=== PATIENT | female | born 1995 ===

== ENCOUNTER 2018-08-28 05:37 | Day surgery (SDC) | payer OTHER ==
[2018-08-28] VITALS (11 sets, daily range): BP systolic 105–127; BP diastolic 49–72
[~2018-08-28] VITALS: Ht 170.2 cm; Wt 83.0 kg
[~2018-08-28 05:37] MED LIST: NKM
[2018-08-28] MEDS ORDERED: ceFAZolin 2gm/50ml Premix 50 ML IVPB ONE (06:45)
[2018-08-28] MEDS ORDERED: fentaNYL 100 mcg/2 mL IV ONE (07:03)
[2018-08-28] MEDS ORDERED: Lidocaine 1% MPF 10mg/ml 5ml ONE (07:03)
[2018-08-28] MEDS ORDERED: Propofol 200mg/20ml IV ONE (07:03)
[2018-08-28] MEDS ORDERED: Midazolam 2mg/2ml Inj ONE (07:03)
[2018-08-28] MEDS ORDERED: Bacitracin Oint 15gm Tube TOPIC ONE (07:16)
[2018-08-28] MEDS ORDERED: Bupivacaine 0.25% Inj 30ml INJ ONE (07:16)
[2018-08-28] MEDS ORDERED: Dyna-Hex 2% Top Sol 2oz TOPIC ONE (07:16)
[2018-08-28] MEDS ORDERED: Muri-Lube ONE (07:16)
[2018-08-28] MEDS ORDERED: Lidocaine 1% 10mg/ml/Epi 0.005mg/ml 30ml vial INJ ONE (07:16)
--- NOTE | 2018-08-28 07:19 | Anethesia Preoperative Eval ---
Anesthesia Pre-op PMH/ROS General Date of Evaluation: Aug 28, 2018 Time of Evaluation: 07:18 Anesthesiologist: Neva Leiva CRNA ASA Score: ASA 1 Mallampati Score Class I : Soft palate, uvula, fauces, pillars visible Class II: Soft palate, uvula, fauces visible Class III: Soft palate, base of uvula visible Class IV: Only hard plate visible Mallampati Classification: Class II Surgeon: Melissa Diagnosis: Gender identity disorder Surgical Procedure: (B) mastectomy with free nipple graft Anesthesia History: none Family History: no anesthesia problems Allergies: Coded Allergies: No Known Allergies (Unverified , 08/27/18) Medications: see eMAR Patient NPO?: Yes NPO Date: Aug 28, 2018 NPO Time: 00:00 Past Medical History Cardiovascular: Denies: HTN, CAD, DC, valve dz, arrhythmia, other Pulmonary: Reports: other - Bronchitis December 2017; no further sequele; Denies: asthma, COPD, LUCIA Gastrointestinal/Genitourinary: Denies: GERD, CRI, ESRD, other Neurologic/Psychiatric: Reports: other - Gender identity disorder Endocrine: Denies: DM, hypothyroidism, steroids, other HEENT: Denies: cataract (L), cataract (R), glaucoma, [place] (L), [place] (R), other Hematology/Immune: Denies: anemia, DVT, bleeding disorder, other Musculoskeletal/Integumentary: Denies: OA, RA, DJD, DDD, edema, other PMH Narrative: as noted above PSxH Narrative: none Anesthesia Pre-op Phys. Exam Physician Exam Last Vital Signs Date Time Temp Pulse Resp B/P (MAP) Pulse Ox O2 Delivery O2 Flow Rate FiO2 08/28/18 06:12 97.0 68 20 126/72 100 Room Air Constitutional: NAD Neurologic: CN 2-12 intact Cardiovascular: RRR Respiratory: CTA Airway Exam Mallampati Score: Class II MO: full Neck: FROM TMD: > 3 FB ROM: full Teeth: intact Dentures: no upper, no lower Anesthesia Pre-op A/P Labs Urine Test Test 08/28/18 05:50 Urine HCG, Qualitative Negative (NEGATIVE) Risk Assessment & Plan Assessment: ASA 1 ok to proceed Plan: GETA Status Change Before Surgery: No Pre-Antibiotics Drug: Neva Brasher CRNA Aug 28, 2018 07:19
--- NOTE | 2018-08-28 07:23 | Pre-Procedure Note/Attestation ---
Pre-Procedure Note/Attestation Complete Prior to Procedure Planned Procedure: bilateral Indications for Procedure Pre-Operative Diagnosis: gender identity disorder Attestation I attest that I discussed the nature of the procedure; its benefits; risks and complications; and alternatives (and the risks and benefits of such alternatives ), prior to the procedure, with the patient (or the patient's legal roofing sales representative). I attest that, if there was a reasonable possibility of needing a blood transfusion, the patient (or the patient's legal roofing sales representative) was given the [facility] standardized written summary, pursuant to the Krishan White Shield Blood Safety Act ([place] Health and Safety Code # 1645, as amended). I attest that I re-evaluated the patient just prior to the surgery and that there has been no change in the patient's H&P, except as documented below: Kevan Torres MD Aug 28, 2018 07:23
[2018-08-28] MEDS ORDERED: Zemuron 50mg/5ml Inj IV ONE (07:27)
[2018-08-28] MEDS ORDERED: Succinylcholine 20mg/ml 10ml vial ONE (07:27)
[2018-08-28] MEDS ORDERED: Sterile Water Irrig 1000ml IRRIG ONE (07:30)
[2018-08-28] MEDS ORDERED: LR 1000ml ONE (07:30)
[2018-08-28] MEDS ORDERED: NS Irrig 1000ml ONE (07:30)
[2018-08-28] MEDS ORDERED: Ketorolac 30mg Inj ONE (08:10)
[2018-08-28] MEDS ORDERED: Dexamethasone 4mg/ml vial ONE (08:10)
[2018-08-28] MEDS ORDERED: Metoclopramide 10mg/2ml Inj IVP PRN (08:30)
[2018-08-28] MEDS ORDERED: Hydromorphone 0.5mg/0.5ml inj IVP PRN (08:30)
[2018-08-28] MEDS ORDERED: Acetaminophen 500mg (ES) tab ORAL PRN (08:30)
[2018-08-28] MEDS ORDERED: DiphenhydrAMINE 50mg/ml Inj IVP PRN (08:30)
[2018-08-28] MEDS ORDERED: Glycopyrrolate 0.2mg/ml 1ml Vial ONE (10:33)
[2018-08-28] MEDS ORDERED: Neostigmine 1mg/ml 10ml Inj ONE (10:33)
--- NOTE | 2018-08-28 11:28 | Discharge Instructions ---
Discharge Instructions Discharge Instructions Follow up with: Dr. Torres 09/03/18 Diet: regular Resume Normal Activity?: Yes Activity: ambulate For Surgical Patients Dressing Care: keep dry and clean May shower: No - sponge bathe only For Congestive Heart Failure Reminder Report to your physician any weight gain of 5 pounds or more in one week. Kevan Torres MD Aug 28, 2018 11:28
--- NOTE | 2018-08-28 11:28 | Operative Note - PDOC ---
Operative Note Operative Note Date of Operation/Procedure: Aug 28, 2018 Pre-op Diagnosis: gender identity disorder Procedure: bilateral mastectomy, bilateral nipple areola reconstruction Post-op Diagnosis: same as pre-op Surgeon: Melissa Anesthesia: general Specimen: yes - 1) right breast, 2) left breast Complications: none Condition: stable Estimated Blood Loss: volume - 50 cc Drains: KRISTOPHER - x2 Implant(s) used?: No Kevan Torres MD Aug 28, 2018 11:28
[2018-08-28] MEDS ORDERED: D5 1/2NS 1,000 ML IV SCH (11:30)
[2018-08-28] MEDS ORDERED: HYDROmorphone 1mg/ml Carpuject SUBQ PRN (11:30)
[2018-08-28] MEDS ORDERED: Tylenol #3 tab (300mg/30mg) ORAL PRN (11:30)
[2018-08-28] MEDS ORDERED: Norco 5mg/325mg tab ORAL PRN (11:30)
--- NOTE | 2018-08-28 11:38 | Immediate Post-Op Evaluation ---
Immediate Post-Op Evalulation Immediate Post-Op Evalulation Procedure: (B) mastectomy with free nipple graft Date of Evaluation: Aug 28, 2018 Time of Evaluation: 11:27 IV Fluids: LR 2200 ml Estimated Blood Loss: 50 ml Urinary Output: 400 ml Blood Pressure Systolic: 122 Blood Pressure Diastolic: 70 Pulse Rate: 67 Respiratory Rate: 22 O2 Sat by Pulse Oximetry: 100 Temperature (Fahrenheit): 97.5 Pain Score (1-10): 0 Nausea: No Vomiting: No Complications none Patient Status: awake, reacts, patent, extubated Hydration Status: adequate Drug: Cefazolin 2 gm IV Given Within 1 Hr of Incision: Yes Time Given: 07:48 Neva Leiva CRNA Aug 28, 2018 11:38
--- NOTE | 2018-08-28 13:27 | 48 Hour Post Anesthesia Eval ---
Post Anesthesia Evaluation Procedure: (B) mastectomy with free nipple graft Date of Evaluation: Aug 28, 2018 Time of Evaluation: 13:25 Blood Pressure Systolic: 116 - 0: 59 Pulse Rate: 66 Respiratory Rate: 23 Temperature (Fahrenheit): 97.4 O2 Sat by Pulse Oximetry: 98 Airway: patent Nausea: No Vomiting: No Pain Intensity: 2 Hydration Status: adequate Cardiopulmonary Status: Stable, returned to baseline Follow-up Care/Observations: per plastic surgery Post-Anesthesia Complications: none Follow-up care needed: ready to discharge Neva Leiva CRNA Aug 28, 2018 13:27
--- NOTE | 2018-08-28 15:15 | Operative Note - Dictated ---
DATE OF OPERATION: 08/28/2018 PREOPERATIVE DIAGNOSIS: Gender identity disorder. POSTOPERATIVE DIAGNOSIS: Gender identity disorder. PROCEDURE: 1. Bilateral mastectomy. 2. Bilateral nipple-areolar reconstruction utilizing full-thickness nipple-areolar grafts (each graft 2.5 x 2.5 centimeters). SURGEON: Kevan Torres M.D. ANESTHESIA: General. ESTIMATED BLOOD LOSS: 50 mL. SPECIMENS: 1. Right breast. 2. Left breast. DRAINS: A 15-Eritrean Nolberto x2. COMPLICATIONS: None. CONDITION: To recovery room stable. INDICATION FOR PROCEDURE: This is a very pleasant 23-year-old trans male who desires top surgery mastectomy as part of his transition. He has the appropriate letter of recommendation from his therapist and meets all WPATH criteria for top surgery. I have discussed the risks, benefits, and alternatives to the procedure with him including, but not limited to, bleeding, infection, scarring, nerve injury, asymmetry, contour deformity, hematoma, seroma, loss of nipple sensation, loss of nipple graft, and need for additional surgery including revisions. I discussed the orientation of the incisions and the unpredictable nature of scarring. No guarantees were made regarding the outcome. All of his questions have been answered to the best of my ability. He verbalized understanding with everything that we discussed and wishes to proceed. DESCRIPTION OF PROCEDURE: The patient was identified in the preoperative holding area and marked in the standing position. He was then brought to the operating room. He was placed in the supine position on the operating room table with his arms extended on arm boards. All bony prominences were adequately padded. Sequential compression devices were placed and intravenous antibiotics were administered. After induction of anesthesia, the patient's chest was prepped and draped in sterile fashion. Starting on the left breast first, the nipple-areola complex was placed on manual stretch and a levelock measuring 2.5 centimeters in diameter was drawn centered around the nipple. The subdermal plane within this marking was then infiltrated with 3 mL of 1% lidocaine with epinephrine. I then proceeded to incise the marking with a 15 blade scalpel and harvested a full-thickness nipple-areolar graft. The graft was subsequently defatted, wrapped in wet gauze and placed on the back table. I then made the inframammary fold incision using a 10 blade scalpel and dissected down to the level of the pectoralis major fascia. Next, I made the superior breast incision with a 10 blade scalpel and dissected down to the level of Ines's fascia. Allis clamps were used to retract the superior skin and a plane of dissection was created between the subcutaneous tissue and breast parenchyma heading in a superior direction towards the level of the clavicle. Afterwards, the breast parenchyma was elevated off of the pectoralis major fascia proceeding from a medial to a lateral direction. The specimen was then passed off the table. Hemostasis was achieved and the wound was irrigated with saline. A 15-Eritrean Nolberto drain was placed within the wound and brought out through a separate stab incision and secured using 2-0 silk suture. Skin amparo were then used to temporarily reapproximate the skin. I shifted my attention to the contralateral side where the identical procedure was performed. The patient was then sat up on the operating room table and it appeared that he had very reasonable symmetry between the 2 sides of his chest. A marking pen was then used to draw out the proposed location of the new nipple-areola complex and these markings were confirmed with direct measurements. He was then placed back in the supine position. On each side of the chest, the skin amparo were removed. The Ines's fascia layer was closed with interrupted 0 Vicryl suture followed by interrupted 3-0 PDS suture for the subdermal layer and a running 3-0 subcuticular Monocryl suture for the skin. Next, I proceeded with the reconstruction of the nipple-areola complex by incising each of the circular markings on each side of the chest using a 15 blade scalpel and deepithelializing the intervening skin. Each of the nipple-areola grafts was placed onto the appropriate side of the chest and inset using a running 5-0 fast absorbing suture. Next, several 2 0 silk suture ties were placed around the periphery of each nipple-areola graft. A skin graft bolster was fashioned and secured into place using 2-0 silk suture ties. Next, 10 mL of 0.25% plain Marcaine were injected into each of the chest incisions for a total of 20 mL. Sterile dressings were then applied. The patient tolerated the procedure well and was sent to the recovery room in stable condition. All instrument, sharp, and sponge counts were correct at the conclusion of the case. Kevan Torres M.D. DR: TOMMY JOB#: [id number] CC: [email or web address]
== END 2018-08-28 13:40 | disposition home or self-care (01) ==
LOC: SUR 05:37
DX: F64.9 Gender identity disorder, unspecified (principal)
CPT/HCPCS: 81025; 94003; 94150; J2250; J2405; J2710; J2765